=== PATIENT | male | born 1990 | race Caucasian/White ===

== ENCOUNTER 2016-10-22 20:08 | Emergency (ER) | payer OTHER ==
[~2016-10-22] VITALS: Ht 170.2 cm; Wt 100.0 kg
[~2016-10-22 20:08] MED LIST: KEFLEX500 MG PO
[2016-10-22] MEDS ORDERED: MOTRIN800 MG PO (20:30)
[2016-10-22] MEDS ORDERED: BACTRIM DS1 TAB PO (20:30)
[2016-10-22 21:00] VITALS: BP 118/83
== END 2016-10-22 20:55 | disposition home or self-care (01) | DRG 603 ==
LOC: ED 20:08
DX: L02.416 Cutaneous abscess of left lower limb (principal); F17.200 Nicotine dependence, unspecified, uncomplicated

== ENCOUNTER 2018-06-08 02:19 | Emergency (ER) | payer OTHER ==
[~2018-06-08] VITALS: Ht 167.6 cm; Wt 113.6 kg
[~2018-06-08 02:19] MED LIST changes: +BACTRIM DS1 TAB PO; +MOTRIN800 MG PO
[2018-06-08 03:00] LABS: HEMATOCRIT 51.6 % (39.0-50.0); HEMOGLOBIN 16.8 g/dl (14.0-18.0); IMMATURE GRANULOCYTES 0.3 % (0.0-5.0); MEAN CORPUSCULAR HGB 29.6 pG CALC (26.0-32.0); MEAN CORPUSCULAR HGB CONC 32.6 g/L CALC (32.0-36.0); NEUT# 4.25 thou/uL (1.82-7.42); RED BLOOD COUNT 5.67 mill/uL (4.70-6.10); RED CELL DISTRI WIDTH 18.4 % (11.5-15.5)
[2018-06-08 03:01] LABS: URINE BILIRUBIN - DIPSTICK NEGATIVE (NEGATIVE); URINE BLOOD DIPSTICK LARGE (NEGATIVE); URINE COLOR YELLOW; URINE GLUCOSE - DIPSTICK NEGATIVE (NEGATIVE); URINE KETONE NEGATIVE (NEGATIVE); URINE LEUK ESTERASE NEGATIVE (Negative); URINE NITRITE - DIPSTICK NEGATIVE (Negative); URINE PROTEIN - DIPSTICK NEGATIVE (NEG-TRACE); URINE SPECIFIC GRAVITY >=1.030; URINE UROBILINOGEN - DIPSTICK 0.2 E.U./dL (0.2)
[2018-06-08 03:03] LABS: URINE CLARITY CLEAR
[2018-06-08 03:11] LABS: URINE RBC 25-50 RBC/hpf (0-5)
[2018-06-08 03:12] LABS: URINE BACTERIA RARE hpf
[2018-06-08 03:43] LABS: ALBUMIN 3.9 g/dL (3.2-5.0); ALKALINE PHOSPHATASE 54 u/l (38-126); ANION GAP 13 (6-22 (CALC)); BILIRUBIN, TOTAL 0.2 mg/dL (0.0-1.4); BUN 12 mg/dL (9-20); BUN/CREATININE RATIO 13 (12-20 (CALC)); CARBON DIOXIDE 23 mmol/l (22-30); CHLORIDE 107 mmol/l (95-108); CREATININE 0.9 mg/dL (0.7-1.3); GFR > 60 ML/MIN (>=60 (CALC)); GFR FOR AFR.AMER. > 60 ML/MIN (>=60 (CALC)); POTASSIUM 3.9 mmol/l (3.5-5.1); SGOT/AST 30 u/l (17-59); SODIUM 139 mmol/l (137-146); TOTAL PROTEIN 6.7 g/dL (6.3-8.2)
[2018-06-08] MEDS ORDERED: CIPROFLOXACN500 MG PO (04:53)
[2018-06-08 05:00] VITALS: BP 160/89
== END 2018-06-08 05:00 | disposition home or self-care (01) | DRG 690 ==
LOC: ED 02:19
PROVIDERS: Emergency Medicine
DX: N30.90 Cystitis, unspecified without hematuria (principal); R30.0 Dysuria